=== PATIENT | male | born 1995 | race Two or more races ===

== ENCOUNTER 2022-08-22 10:35 | Emergency (ER) | payer BC, MEDICAID ==
[~2022-08-22] VITALS: Ht 182.9 cm; Wt 122.0 kg
[2022-08-22 13:36] VITALS: BP 146/82
[2022-08-22] MEDS ORDERED: AMOX500C2 PO (14:18)
== END 2022-08-22 14:31 | disposition home or self-care (01) ==
LOC: EDBD 10:35 → ER 10:35
DX: S02.5XXA Fracture of tooth (traumatic), initial encounter for closed fracture (principal); H66.91 Otitis media, unspecified, right ear; X58.XXXA Exposure to other specified factors, initial encounter; Y93.89 Activity, other specified; Y92.89 Other specified places as the place of occurrence of the external cause; Y99.8 Other external cause status

== ENCOUNTER 2023-05-03 23:59 | Emergency (ER) | payer MEDICAID ==
[~2023-05-03] VITALS: Ht 188 cm; Wt 127.2 kg
[~2023-05-03 23:59] MED LIST: AMOX500C2 PO
[2023-05-04 00:35] VITALS: PULSE 103; RESP 18; TEMP 97.9; O2SAT 93
[2023-05-04] MEDS ORDERED: KETOROLAC TROMETH 30 MG/ML 1ML VIAL IV ONE (01:00)
[2023-05-04] MEDS ORDERED: levETIRAcetam 500 MG/5ML INJ IV ONE (01:35)
[2023-05-04] MEDS ORDERED: LEVE500T40 PO (02:14)
[2023-05-04 02:35] VITALS: BP 124/68; PULSE 93; RESP 12; O2SAT 95
[2023-05-04] MEDS ORDERED: IBUP-1455 PO (19:55)
== END 2023-05-04 03:09 | disposition home or self-care (01) ==
LOC: EDBD 23:59 → ER 05-04 00:01
DX: S01.21XA Laceration without foreign body of nose, initial encounter (principal); R56.9 Unspecified convulsions; X58.XXXA Exposure to other specified factors, initial encounter; Y93.89 Activity, other specified; Y92.89 Other specified places as the place of occurrence of the external cause; Y99.8 Other external cause status
CPT/HCPCS: 12013; 70450; 96365; 96375; 99285; J1885; J1953; J7060

== ENCOUNTER 2023-05-04 16:15 | Emergency (ER) | payer MEDICAID ==
[~2023-05-04] VITALS: Ht 195.6 cm; Wt 150.2 kg
[~2023-05-04 16:15] MED LIST changes: +LEVE500T40 PO
[2023-05-04 17:10] VITALS: BP 129/68; PULSE 88; RESP 18; TEMP 97.3; O2SAT 96
[2023-05-04] MEDS ORDERED: KETOROLAC TROMETH 60MG/2ML VIAL IM ONE (19:45)
[2023-05-04] MEDS ORDERED: IBUP-1455 PO (19:55)
== END 2023-05-04 20:20 | disposition home or self-care (01) ==
LOC: ER 16:15
DX: K08.89 Other specified disorders of teeth and supporting structures (principal); R51.9 Headache, unspecified
CPT/HCPCS: 70486; 96372; 99285; J1885

== ENCOUNTER 2024-06-04 01:28 | Emergency (ER) | payer MEDICAID ==
[~2024-06-04] VITALS: Ht 188 cm; Wt 104.5 kg
[~2024-06-04 01:28] MED LIST changes: +IBUP-1455 PO
[2024-06-04 06:00] VITALS: BP 108/59; PULSE 64; RESP 23; O2SAT 96
== END 2024-06-04 06:12 | disposition home or self-care (01) ==
LOC: EDBD 01:28 → ER 01:28
DX: G40.909 Epilepsy, unspecified, not intractable, without status epilepticus (principal); G80.9 Cerebral palsy, unspecified; F32.9 Major depressive disorder, single episode, unspecified

== ENCOUNTER 2024-08-07 06:27 | Emergency (ER) | payer MEDICAID ==
[~2024-08-07] VITALS: Ht 195.6 cm; Wt 125.0 kg
[2024-08-07 06:50] VITALS: PULSE 84; RESP 20; O2SAT 99
[2024-08-07 07:31] VITALS: PULSE 66; RESP 14; O2SAT 97
[2024-08-07] MEDS: LORazepam 2MG/ML-1ML VIAL IV ONE (08:21)
--- NOTE | 2024-08-07 08:58 | ED.PDOC ---
HPI (NEURO) HPI Comments 29 year old male presents to the ED with chief complaint of seizure. EMS reports that the patient had a witnessed seizure at his friend's home this morning. EMS relays patient has history of seizures in the past, but is non-compliant with his medication. Patient is unable to communicate verbally and is deaf. Patient denies any chest pain, N/V/D, dizziness, headache, or SOB. Chief Complaint: Seizure Time Seen by MD: 08:10 Primary Care Provider: NONE Reviewed Notes: Nurses Notes, Cable Maintainer Notes, Medications, Allergies Information Source: Patient, Emergency Med Personnel Mode of Arrival: EMS Severity: Moderate Timing: Hours Duration: Minutes Prehospital treatment: None Seizure Quality: Tonic-clonic Seizure Location: Generalized Onset: At rest Circumstances: Spontaneous Symptoms: None Before: Normal During: LOC After: Normal Mentation History of: Seizure Disorder Modifying factors: Nothing Past Medical History PAST MEDICAL HISTORY: Depression, Seizures Past Medical History (Other): Cerebral Palsy, Deaf Surgical History: Denies all surgeries Family History Family History: Unknown Social History Smoker: Non-Smoker Alcohol: Denies ETOH Use Drugs: Denies Drug Use Lives In: Home Constitutional: denies: chills, diaphoresis, fatigue, fever, malaise, sweats, weakness, others EENTM: denies: blurred vision, double vision, ear bleeding, ear discharge, ear drainage, ear pain, ear ringing, eye pain, eye redness, hearing loss, mouth pain, mouth swelling, nasal discharge, nose bleeding, nose congestion, nose pain, photophobia, tearing, throat pain, throat swelling, voice changes, others Respiratory: denies: cough, hemoptysis, orthopnea, SOB at rest, shortness of breath, SOB with excertion, stridor, wheezing, others Cardiovascular: denies: chest pain, dizzy spells, diaphoresis, Dyspnea on exertion, edema, irregular heart beat, left arm pain, lightheadedness, palpitations, PND, syncope, others Gastrointestinal: denies: abdomen distended, abdominal pain, blood streaked bowels, constipated, diarrhea, dysphagia, difficulty swallowing, hematemesis, melena, nausea, poor appetite, poor fluid intake, rectal bleeding, rectal pain, vomiting, others Genitourinary: denies: burning, dysuria, flank pain, frequency, hematuria, incontinence, penile discharge, penile sore, pain, testicle pain, testicle swelling, urgency, others Neurological: reports: seizure; denies: dizziness, fainting, headache, left sided numbness, left sided weakness, numbness, paresthesia, pre-existing deficit, right sided numbness, right sided weakness, speech problems, tingling, tremors, weakness, others Musculoskeletal: denies: back pain, gout, joint pain, joint swelling, muscle pain, muscle stiffness, neck pain, others Integumetry: denies: bruises, change in color, change in hair/nails, dryness, laceration, lesions, lumps, rash, wounds, others Allergic/Immunocompromised: denies: Difficulty Healing, Frequent Infections, Hives, Itching, others Hematologic/Lymphatic: denies: anemia, blood clots, easy bleeding, easy bruising, swollen glands, others Endocrine: denies: excessive hunger, excessive sweating, excessive thirst, excessive urination, flushing, intolerance to cold, intolerance to heat, unexplained weight gain, unexplained weight loss, others Psychiatric: denies: anxiety, bipolar disorder, depression, hopeless, panic disorder, schizophrenia, sleepless, suicidal, others All Other Systems: Reviewed and Negative Physical Exam General Appearance: No Apparent Distress, Normal HEENT: Normal ENT Inspection, PERRL/EOMI, Other (Patient is deaf but does understand) Neck: Full Range of Motion, Non-Tender, Normal, Normal Inspection Respiratory: Chest Non-Tender, Lungs Clear, No Accessory Muscle Use, No Respiratory Distress, Normal Breath Sounds Cardiovascular: No Edema, No JVD, No Murmur, No Gallop, Normal Peripheral Pulses, Regular Rate/Rhythm Breast Exam: Deferred Gastrointestinal: No Organomegaly, Non Tender, No Pulsatile Mass, Normal Bowel Sounds, Soft Genitalia: Deferred Pelvic: Deferred Rectal: Deferred Extremities: No calf tenderness, Normal capillary refill, Normal inspection, Normal range of motion, Non-tender, No pedal edema Musculoskeletal : Apperance: Normal Neurologic: Alert, powerhouse oiler II-XII nml as Tested, No Motor Deficits, Normal Affect, Normal Mood, No Sensory Deficits Cerebellar Function: Normal Reflexes: Normal Skin: Dry, Normal Color, Warm Peripheral Pulses: 1+ carotid (R), 1+ carotid (L) Lymphatic: No Adenopathy Was a procedure done? Was a procedure done?: No Differential Diagnosis (SZ) Seizure: Hypocalcemia, Hypoglycemia, Hyponatremia, Epilepsy-Break Through, Epilepsy-Status CVA: Electrolyte Imbalance, Hypoglycemia General Weakness: Anemia, Dehydration, Dysrhythmia, Electrolyte imbalance, Hypoglycemia, Hypotension, Hypovolemia Headache: N/A X-Ray, Labs, Meds, VS Vital Signs Date Time Temp Pulse Resp B/P (MAP) Pulse Ox O2 Delivery O2 Flow Rate FiO2 08/07/24 10:21 70 26 109/64 (79) 94 08/07/24 09:00 70 23 118/66 (83) 94 08/07/24 08:00 60 08/07/24 07:31 66 14 97 Room Air* 0 21 08/07/24 07:31 98.0 66 14 106/53 (70) 97 98.0 08/07/24 06:50 98.2 84 20 129/81 (97) 99 98.2 08/07/24 06:50 84 20 99 Room Air* 0 21 08/07/24 06:33 98.2 84 20 129/81 (97) 99 Lab Test 08/07/24 09:47 Range/Units White Blood Count 11.9 H 4.4-10.8 10^3/uL Red Blood Count 4.91 4.5-5.90 10^6/uL Hemoglobin 14.6 13.5-17.5 g/dL Hematocrit 42.9 41.0-53.0 % Mean Corpuscular Volume 87.5 80.0-100.0 fL Mean Corpuscular Hemoglobin 29.8 28.0-32.0 pg Mean Corpuscular Hemoglobin Concent 34.1 32.0-36.0 g/dL Red Cell Distribution Width 13.0 11.8-14.3 % Platelet Count 203 140-450 10^3/uL Mean Platelet Volume 8.9 6.9-10.8 fL Neutrophils (%) (Auto) 83.2 H 37.0-80.0 % Lymphocytes (%) (Auto) 11.4 10.0-50.0 % Monocytes (%) (Auto) 4.5 0.0-12.0 % Eosinophils (%) (Auto) 0.6 0.0-7.0 % Basophils (%) (Auto) 0.3 0.0-2.0 % Neutrophils # (Auto) 9.9 H 1.6-8.6 10 ^3/uL Lymphocytes # (Auto) 1.4 0.4-5.4 10 ^3/uL Monocytes # (Auto) 0.5 0-1.3 10 ^3/uL Eosinophils # (Auto) 0.1 0-0.8 10 ^3/uL Basophils # (Auto) 0 0-0.2 10 ^3/uL Nucleated Red Blood Cells 0.1 % Sodium Level 140 136-145 mmol/L Potassium Level 3.9 3.5-5.1 mmol/L Chloride Level 107 98-107 mmol/L Carbon Dioxide Level 26 20-31 mmol/L Anion Gap 7 5-15 Blood Urea Nitrogen 8 L 9-23 mg/dL Creatinine 0.70 0.700-1.30 mg/dL Glomerular Filtration Rate Calc 126 >90 mL/min BUN/Creatinine Ratio 11.4 10.0-20.0 Serum Glucose 103 74-106 mg/dL Calcium Level 9.4 8.7-10.4 mg/dL Magnesium Level 2.2 1.6-2.6 mg/dL Total Bilirubin 0.5 0.2-1.0 mg/dL Aspartate Amino Transferase (AST) 18 13-40 U/L Alanine Aminotransferase (ALT) 39 7-40 U/L Alkaline Phosphatase 111 46-116 U/L Total Protein 6.6 5.7-8.2 g/dL Albumin 4.0 3.2-4.8 g/dL Current Medications Medications (Trade) Dose Ordered Sig/Thelma Route Start Time Stop Time Status Last Admin Lorazepam (Ativan Inj) 1 mg ONCE ONCE IV 08/07/24 08:15 08/07/24 08:16 DC 08/07/24 08:21 Sodium Chloride 1,000 ml @ 150 mls/hr [id number] ONCE IV 08/07/24 09:30 08/07/24 16:09 08/07/24 09:45 Levetiracetam 100 ml @ 400 mls/hr ONCE ONCE IV 08/07/24 09:30 08/07/24 09:44 DC 08/07/24 09:45 CXR:FINDINGS: Lines and Tubes: None Lungs: No focal consolidation. Pleura: No effusion.No pneumothorax. Cardiomediastinal contours: Unremarkable Pulmonary vasculature: Within normal limits. Bones: No acute osseous abnormality. IMPRESSION: 1. No acute cardiopulmonary disease. HS:Y X-Ray, Labs, Meds, VS Comment Course in the emergency department eventful patient came in because of a seizure disorder patient is deaf and mute with a history of seizure disorder and cerebral palsy Chest x-ray is normal EKG pending CT head negative CBC [address] with 83% neutrophils and normal H&H CMP normal Magnesium 2.2 Patient will be hydrated and medicated Patient is feeling better is conscious Site and coherent and will be discharged home Time of 1ST Reevaluation: 09:10 Reevaluation 1ST: Unchanged Patient Education/Counseling: Diagnosis, Treatment Family Education/Counseling: No Family Present Departure 1 Departure Time of Disposition: 14:19 Impression: Primary Impression: Seizure disorder Additional Impression: Deaf-mutism, congenital Disposition: 01 HOME / SELF CARE / HOMELESS Condition: Fair Additional Instructions: Continue present management Discharged With: Self Critical Care Note Critical Care Time?: No Stability Stability form required: No Heart Score Heart Score: Heart Score Response (Comments) Value History N/A 0 EKG N/A 0 Age <45 0 Risk Factors 1 or 2 risk factors 1 Troponin N/A 0 Total 1 I personally scribed for MICKEY JEONG MD ([email or web address]) on 08/07/24 at 08:58. Electronically submitted by Sal Henderson ([email or web address]). I personally scribed for MICKEY JEONG MD ([email or web address]) on 08/07/24 at 10:03. Electronically submitted by Sal Henderson ([email or web address]). MICKEY JEONG MD Aug 07, 2024 08:58
[2024-08-07] MEDS: levETIRAcetam 1000 mg/100ml 100 ML IV ONE (09:45)
[2024-08-07] MEDS: SODIUM CHLORIDE 0.9% 1,000 ML IV ONE (09:45)
--- NOTE | 2024-08-07 09:56 | DVH ---
CHEST RADIOGRAPH Indication: Seizure Technique: Single frontal view of the chest was obtained Comparison: None FINDINGS: Lines and Tubes: None Lungs: No focal consolidation. Pleura: No effusion.No pneumothorax. Cardiomediastinal contours: Unremarkable Pulmonary vasculature: Within normal limits. Bones: No acute osseous abnormality. IMPRESSION: 1. No acute cardiopulmonary disease. HS:Y
[2024-08-07 10:02] LABS: Basophils # (auto) 0 10 ^3/uL (0-0.2); Basophils % (auto) 0.3 % (0.0-2.0); Eosinophils # (auto) 0.1 10 ^3/uL (0-0.8); Eosinophils % (auto) 0.6 % (0.0-7.0); Hematocrit 42.9 % (41.0-53.0); Hemoglobin 14.6 g/dL (13.5-17.5); Lymphocytes # (auto) 1.4 10 ^3/uL (0.4-5.4); Lymphocytes % (auto) 11.4 % (10.0-50.0); Mean Corpuscular Hemoglobin 29.8 pg (28.0-32.0); Mean Corpuscular Hgb Conc. 34.1 g/dL (32.0-36.0); Mean Corpuscular Volume 87.5 fL (80.0-100.0); Monocytes # (auto) 0.5 10 ^3/uL (0-1.3); Monocytes % (auto) 4.5 % (0.0-12.0); Neutrophils # (auto) 9.9 10 ^3/uL (1.6-8.6); Neutrophils % (auto) 83.2 % (37.0-80.0); Nucleated Red Blood Cells % 0.1 %; Platelet Count (auto) 203 10^3/uL (140-450); Red Blood Cells 4.91 10^6/uL (4.5-5.90); White Blood Cell 11.9 10^3/uL (4.4-10.8)
[2024-08-07 10:17] LABS: Alanine Aminotransferase 39 U/L (7-40); Alkaline Phosphatase 111 U/L (46-116); Anion Gap 7 (5-15); Aspartate Aminotransferase 18 U/L (13-40); BUN/Creatinine Ratio 11.4 (10.0-20.0); Calcium 9.4 mg/dL (8.7-10.4); Carbon Dioxide 26 mmol/L (20-31); Chloride 107 mmol/L (98-107); Glucose 103 mg/dL (74-106); Magnesium 2.2 mg/dL (1.6-2.6); Potassium 3.9 mmol/L (3.5-5.1); Sodium 140 mmol/L (136-145)
[2024-08-07 10:18] LABS: Bilirubin, Total 0.5 mg/dL (0.2-1.0); Total Protein 6.6 g/dL (5.7-8.2)
[2024-08-07 10:20] LABS: Blood Urea Nitrogen 8 mg/dL (9-23)
--- NOTE | 2024-08-07 10:34 | DVH ---
EXAM: CT HEAD WITHOUT CONTRAST HISTORY: Recurrent seizures COMPARISON: CT HEAD WITHOUT CONTRAST on DOS: 05/03/23 TECHNIQUE: Axial images of the head were obtained and reformatted in coronal and sagittal planes. All CT scans at this medical facility are performed using dose modulation techniques as appropriate t o a performed exam including the following: Automated exposure control was utilized; adjustment of th e MA and/or KV according to patient size; and use of iterative reconstruction technique. CT Dose: CTDI volume is 57 mGy. Dose-length product is 12 30 mGy*cm FINDINGS: There is no evidence of acute intracranial hemorrhage, mass, mass effect midline shift. There is no h ydrocephalus or extra-axial fluid collection. Sotelo-white matter differentiation is maintained.. There is opacification of the bilateral sphenoid and ethmoid sinuses. There is moderate opacification of the right maxillary sinus. The mastoid air cells are clear. IMPRESSION: 1. No acute intracranial process. 2. Paranasal sinus disease. HS:Y
[2024-08-07 14:27] LABS: Urine Bacteria None Seen /hpf (None Seen)
[2024-08-07 14:35] LABS: Urine Blood Negative /uL (Negative); Urine Clarity Clear (Clear); Urine Color Light-Yellow (Yellow); Urine Protein, UAD Negative (Negative); Urine Specific Gravity 1.011 (1.001-1.035); Urine Urobilinogen Normal (Negative); Urine WBC 1 /hpf (0 - 3)
[2024-08-07 15:00] VITALS: BP 125/72; PULSE 61; RESP 15; TEMP 97.8; O2SAT 96
[2024-08-07 15:00] LABS: Amphetamine Screen, Urine Neg (NEGATIVE); Barbiturate Scree,Urine Neg (NEGATIVE); Benzodiazephine Screen, Urine Neg (NEGATIVE); Cannabinoid Screen, Urine Pos (NEGATIVE); Cocaine Screen, Urine Neg (NEGATIVE); Opiate Scree,Urine Neg (NEGATIVE); Phencyclidine Screen, Urine Neg (NEGATIVE)
[2024-08-07] MEDS ORDERED: KEP500T PO (15:20)
== END 2024-08-07 15:29 | disposition home or self-care (01) ==
LOC: EDBD 06:27 → ER 06:27 → EDSEX 06:27 → ER 15:27
DX: G40.909 Epilepsy, unspecified, not intractable, without status epilepticus (principal); R47.01 Aphasia; G80.9 Cerebral palsy, unspecified; Z79.899 Other long term (current) drug therapy
CPT/HCPCS: 36415; 70450; 71045; 80053; 80307; 81001; 83735; 85025; 96365; 96375; 99285; J1953; J2060; J7030

== ENCOUNTER 2024-08-29 07:44 | Emergency (ER) | payer MEDICAID ==
[~2024-08-29] VITALS: Ht 182.9 cm; Wt 100.0 kg
[~2024-08-29 07:44] MED LIST changes: +KEP500T PO
[2024-08-29 08:20] VITALS: PULSE 68; RESP 16; O2SAT 98
[2024-08-29 08:44] VITALS: TEMP 98
--- NOTE | 2024-08-29 09:19 | ED.PDOC ---
HPI (NEURO) HPI Comments 29-year-old male presents to the ED via EMS for an evaluation of a witnessed seizure. Patient is mute/ deaf, gauzz device was used for translation purposes. Per EMS, sister found the patient wandering around in the house states this is how he gets when he is about to have a seizure so he assisted him and reported no head trauma. Patient reports that sister slept in today and forgot to give him his Keppra dosage in which he is unsure of the dosage but does state and other occasions he has been noncompliant due to forgetfulness. Patient not this time did report a slight headache with nausea but at bedside he feels much better. Chief Complaint: Seizure Time Seen by MD: 08:50 Primary Care Provider: NONE Reviewed Notes: Nurses Notes, Tube Cleaner Notes, Medications, Allergies Information Source: Patient, Emergency Med Personnel Mode of Arrival: EMS Severity: Moderate Headache Severity: Moderate Timing: Hours Duration: Since onset Seizure Quality: Tonic-clonic, Single Episodes Headache Location: Generalized Seizure Location: Generalized Onset: At rest Circumstances: Spontaneous Symptoms: None Before: Normal During: LOC After: Normal Mentation History of: Seizure Disorder Modifying factors: Nothing Associated Signs and Symptoms: Headache Past Medical History PAST MEDICAL HISTORY: Depression, Seizures Surgical History: Denies all surgeries Family History Family History: Unknown Social History Smoker: Non-Smoker Alcohol: Denies ETOH Use Drugs: Denies Drug Use Lives In: Home Constitutional: denies: chills, diaphoresis, fatigue, fever, malaise, sweats, weakness, others EENTM: denies: blurred vision, double vision, ear bleeding, ear discharge, ear drainage, ear pain, ear ringing, eye pain, eye redness, hearing loss, mouth pain, mouth swelling, nasal discharge, nose bleeding, nose congestion, nose pain, photophobia, tearing, throat pain, throat swelling, voice changes, others Respiratory: denies: cough, hemoptysis, orthopnea, SOB at rest, shortness of breath, SOB with excertion, stridor, wheezing, others Cardiovascular: denies: chest pain, dizzy spells, diaphoresis, Dyspnea on exertion, edema, irregular heart beat, left arm pain, lightheadedness, palpitations, PND, syncope, others Gastrointestinal: reports: nausea; denies: abdomen distended, abdominal pain, blood streaked bowels, constipated, diarrhea, dysphagia, difficulty swallowing, hematemesis, melena, poor appetite, poor fluid intake, rectal bleeding, rectal pain, vomiting, others Genitourinary: denies: burning, dysuria, flank pain, frequency, hematuria, incontinence, penile discharge, penile sore, pain, testicle pain, testicle swelling, urgency, others Neurological: reports: headache, seizure; denies: dizziness, fainting, left sided numbness, left sided weakness, numbness, paresthesia, pre-existing deficit, right sided numbness, right sided weakness, speech problems, tingling, tremors, weakness, others Musculoskeletal: denies: back pain, gout, joint pain, joint swelling, muscle pain, muscle stiffness, neck pain, others Integumetry: denies: bruises, change in color, change in hair/nails, dryness, laceration, lesions, lumps, rash, wounds, others Allergic/Immunocompromised: denies: Difficulty Healing, Frequent Infections, Hives, Itching, others Hematologic/Lymphatic: denies: anemia, blood clots, easy bleeding, easy bruisi ng, swollen glands, others Endocrine: denies: excessive hunger, excessive sweating, excessive thirst, exce ssive urination, flushing, intolerance to cold, intolerance to heat, unexplained weight gain, unexplained weight loss, others Psychiatric: denies: anxiety, bipolar disorder, depression, hopeless, panic disorder, schizophrenia, sleepless, suicidal, others All Other Systems: Reviewed and Negative Physical Exam General Appearance: No Apparent Distress, Normal HEENT: Normal ENT Inspection, Pharynx Normal, TMs Normal Neck: Full Range of Motion, Non-Tender, Normal, Normal Inspection Respiratory: Chest Non-Tender, Lungs Clear, No Accessory Muscle Use, No Respiratory Distress, Normal Breath Sounds Cardiovascular: No Edema, No JVD, No Murmur, No Gallop, Normal Peripheral Pulses, Regular Rate/Rhythm Breast Exam: Deferred Gastrointestinal: No Organomegaly, Non Tender, No Pulsatile Mass, Normal Bowel Sounds, Soft Genitalia: Deferred Pelvic: Deferred Rectal: Deferred Extremities: No calf tenderness, Normal capillary refill, Normal inspection, Normal range of motion, Non-tender, No pedal edema Musculoskeletal : Apperance: Normal Neurologic: Alert, pension administrator II-XII nml as Tested, No Motor Deficits, Normal Affect, Normal Mood, No Sensory Deficits Cerebellar Function: Normal Reflexes: Normal Skin: Dry, Normal Color, Warm Lymphatic: No Adenopathy Was a procedure done? Was a procedure done?: No Differential Diagnosis (SZ) Seizure: Syncope, Encephalopathy, Epilepsy-Break Through, Epilepsy-Status X-Ray, Labs, Meds, VS Vital Signs Date Time Temp Pulse Resp B/P (MAP) Pulse Ox O2 Delivery O2 Flow Rate FiO2 08/29/24 08:44 98.0 68 16 106/59 (75) 98 98.0 08/29/24 08:20 68 16 98 Room Air* 0 21 08/29/24 08:13 98.0 80 16 120/71 (87) 97 08/29/24 08:00 62 16 126/83 (97) 95 X-Ray, Labs, Meds, VS Comment This 29-year-old male with a past medical history significant for epilepsy presents to the ER after having a witnessed seizure. Typically takes Keppra 500 mg p.o. b.i.d.. He missed his evening and morning doses. Here, he was loaded with 1 g of Keppra and discharged home. The time of our interview, he states he had no complaints. Denies so she was headaches and vision, chest pain, shortness of breath. However, endorsed very mild nausea. Secondary to his normal physical exam, minimal complaints, and having missed 2 doses of Keppra, I believe the patient does not require emergent workup at this time. He was loaded with Keppra and will be start show. He is asked to not miss further doses. Time of 1ST Reevaluation: 09:48 Reevaluation 1ST: Unchanged Patient Education/Counseling: Diagnosis, Treatment, Prognosis Family Education/Counseling: No Family Present Departure 1 Departure Time of Disposition: 10:12 Impression: Primary Impression: Deaf-mutism, congenital Additional Impressions: Epilepsy Seizure Disposition: 01 HOME / SELF CARE / HOMELESS Condition: Good Discharged With: Self, Relative (Sibling) Critical Care Note Critical Care Time?: No Stability Stability form required: No I personally scribed for PREM MCDOWELL MD ([email or web address]) on 08/29/24 at 09:19. Electronically submitted by Dahlia Valencia ([facility]). I personally scribed for PREM MCDOWELL MD ([email or web address]) on 08/29/24 at 09:49. Electronically submitted by Dahlia Valencia ([facility]). PREM MCDOWELL MD Aug 29, 2024 09:19
[2024-08-29 10:00] VITALS: BP 97/49; PULSE 67; RESP 16; O2SAT 94
== END 2024-08-29 10:47 | disposition home or self-care (01) ==
LOC: EDBD 07:44 → ER 07:44 → EDUNIT# 07:44 → ER 10:46
DX: G40.909 Epilepsy, unspecified, not intractable, without status epilepticus (principal); R47.01 Aphasia